=== PATIENT | male | born 2000 | race Caucasian/White ===

== ENCOUNTER 2021-07-06 05:25 | Emergency (ER) | payer BC ==
--- OUTSIDE RECORDS SUMMARY | 2021-07-06 05:29 | XMS REPORT | Continuity of Care Document ---
:2000 Author Organization [facility] t Address [address] [place] [place] [address] Care Team Providers Name Role Phone Unavailable Unavailable Unavailable Problems This patient has no known problems. Allergies, Adverse Reactions, Alerts This patient has no known allergies or adverse reactions. Medications This patient has no known medications. Immunizations Ordered Filled Immunization Date Status Comments [facility] e Immunization Name Name Gardasil, HPV Gardasil, HPV 2019-10-[address] [facility] - 9-valent, IM 9-valent, IM 00:00:00 [facility] Procedures This patient has no known procedures. Encounters Start End Encounter Admission Attending Care Care Encounter Source Date/Time Date/Time Type Type Clinicians Facility Department ID 2021-06-30 2021-06-[address] [facility] [id number] [facility] 2021-03-03 2021-03-[address] [facility] [id number] [facility] 2021-03-03 2021-03-[address] [facility] [id number] [facility] 2020-08-20 2020-08-[address] [facility] [id number] [facility] 2020-07-23 2020-07-23 [facility] [id number] [facility] 14[facility]30[facility]00 14:30[facility]00 [facility] 2019-10-24 2019-10-24 Outpatient Dim[facility]le[facility] [id number] [facility] 16:00:00 16:00:00 [facility] ent Clinics Results This patient has no known results.
[2021-07-06 06:19] LABS: Absolute Lymphocytes (CBC) 1.8 K/uL (0.7-4.9); Basophils % 0.4 % (0-1.3); Hematocrit 48.9 % (39.6-49.0); Lymphocytes % 17.3 % (15.3-44.8); MPV 9.6 fL (7.6-11.3); RBC Red Blood Cell Count 5.37 M/uL (4.33-5.43)
[2021-07-06 06:25] LABS: ALT/SGPT 24 U/L (12-78); AST/SGOT 16 U/L (15-37); Albumin 4.4 g/dL (3.4-5.0); Alkaline Phosphatase 57 U/L (45-117); BUN Blood Urea Nitrogen 21 mg/dL (7-18); Bicarbonate 28 mmol/L (21-32); Bilirubin Direct 0.2 mg/dL (0-0.2); Bilirubin Total 0.7 mg/dL (0.2-1.0); Glucose Level 97 mg/dL (74-106); Lipase 81 U/L (73-393); Protein, Total 7.8 g/dL (6.4-8.2); Sodium Level 142 mmol/L (136-145)
--- NOTE | 2021-07-06 07:45 | RAD REPORT ---
EXAM DESCRIPTION: CTAbdomen Pelvis W Contrast - 07/06/2021 7:37 am CLINICAL HISTORY: Abdominal pain. ABD PAIN COMPARISON: No comparisons TECHNIQUE: Biphasic CT imaging of the abdomen and pelvis was performed with 100 ml non-ionic IV cont rast. All CT scans are performed using dose optimization technique as appropriate and may include automated exposure control or mA/KV adjustment according to patient size. FINDINGS: The lung bases are clear. No focal liver lesions are seen. Simple appearing left upper pole renal cyst. Pancreas is unremarkabl e. The spleen is unremarkable. No adrenal masses. No hydronephrosis or stones. No bowel obstruction, free air, free fluid or abscess. The appendix is normal. No evidence of signi ficant lymphadenopathy. No suspicious bony findings. IMPRESSION: No acute intra-abdominal or pelvic finding. Normal appendix.
--- NOTE | 2021-07-06 07:57 | EDPHYS ---
Physician Documentation [facility] Name: Tavon Vicente Age: 21 yrs Sex: Male : 2000 Arrival Date: 07/06/2021 Time: 05:28 Bed 7 Private MD: ED Physician Miguelito Espinal HPI: 07/06 07:11 This 21 yrs old Male presents to ER via Ambulatory with complaints of rn Abdominal Pain. 07:11 The patient presents with abdominal pain in the epigastric area. Onset: The rn symptoms/episode began/occurred this morning. The symptoms do not radiate. Associated signs and symptoms: Pertinent negatives: blood in stools, chest pain, constipation, diarrhea, dysuria, fever, hematuria, nausea, testicular pain, vomiting, vomiting blood. The symptoms are described as intermittent, sharp. Modifying factors: The symptoms are alleviated by nothing, the symptoms are aggravated by touching the area. Severity of pain: At its worst the pain was moderate in the emergency department the pain has improved. The patient has not experienced similar symptoms in the past. The patient has not recently seen a physician. Patient reports upper abdominal pain that began this morning, sharp, was constant but now letting up. Pain now down to a 1 or 2 out of 10. No fever no vomiting no diarrhea. No recent illnesses. No sick contacts. Reports noticed pain last night after drinking soda.. Historical: - Allergies: 05:48 No Known Allergies; em - PMHx: 05:48 None; em - PSHx: 05:48 None; em - Immunization history:: Client reports having NOT received the Covid vaccine. - Social history:: Smoking status: Patient denies any tobacco usage or history of. - Family history:: not pertinent. - Hospitalizations: : No recent hospitalization is reported. ROS: 07:11 Constitutional: Negative for fever, chills, and weight loss, Eyes: Negative for injury, rn pain, redness, and discharge, Neck: Negative for injury, pain, and swelling, Cardiovascular: Negative for chest pain, palpitations, and edema, Respiratory: Negative for shortness of breath, cough, wheezing, and pleuritic chest pain, Abdomen/GI: Negative for nausea, vomiting, diarrhea, and constipation, Back: Negative for injury and pain, : Negative for injury, bleeding, discharge, and swelling, MS/Extremity: Negative for injury and deformity, Skin: Negative for injury, rash, and discoloration, Neuro: Negative for headache, weakness, numbness, tingling, and seizure. 07:11 All other systems are negative. Exam: 07:11 Constitutional: Thin male, ambulatory to room without assistance, no acute distress rn Head/Face: Normocephalic, atraumatic. Eyes: Periorbital areas with no swelling, redness, or edema. ENT: No stridor Cardiovascular: Regular rate and rhythm. No pulse deficits. Respiratory: No increased work of breathing, no retractions or nasal flaring. Abdomen/GI: Soft, mild epigastric tenderness, no rebound or guarding. Negative Bowman Skin: Warm, dry MS/ Extremity: Pulses equal, no cyanosis. Neuro: Awake and alert, GCS 15 Vital Signs: 05:47 BP 141 / 88; Pulse 59; Resp 20; Temp 97.8(O); Pulse Ox 95% on R/A; Weight 63.5 kg; em Height 6 ft. 1 in. (185.42 cm); 05:47 Body Mass Index 18.47 (63.50 kg, 185.42 cm) em MDM: 07:04 Patient medically screened. rn 07:55 Differential diagnosis: appendicitis, cholecystitis, Cholelithiasis, gastritis, rn gastroesophageal reflux disease, non-specific abd pain, pancreatitis, Peptic Ulcer Disease. Differential diagnosis: gastritis. Data reviewed: vital signs, nurses notes. Counseling: I had a detailed discussion with the patient and/or guardian regarding: the historical points, exam findings, and any diagnostic results supporting the discharge/admit diagnosis, lab results, radiology results, the need for outpatient follow up, to return to the emergency department if symptoms worsen or persist or if there are any questions or concerns that arise at home. Response to treatment: the patient's symptoms have mildly improved after treatment, and as a result, I will discharge patient. Special discussion: Based on the patient's Hx, exam, and Dx evaluation, there is no indication for emergent surgery or inpatient Tx. It is understood by the patient/guardian that if the Sx's persist or worsen they need to return immediately for re-evaluation. I discussed with the patient/guardian in detail that at this point there is no indication for admission to the hospital. It is understood, however, that if the symptoms persist or worsen the patient needs to return immediately for re-evaluation. 07/06 05:48 Order name: Basic Metabolic Panel em 07/06 05:48 Order name: CBC with Diff em 07/06 05:48 Order name: Hepatic Function em 07/06 05:48 Order name: Lipase em 07/06 06:22 Order name: CBC with Automated Diff; Complete Time: 07:11 EDMS 07/06 06:25 Order name: Basic Metabolic Panel; Complete Time: 07:11 EDMS 07/06 05:48 Order name: IV Saline Lock; Complete Time: 06:47 em 07/06 05:48 Order name: Labs collected and sent; Complete Time: 06:47 em 07/06 06:25 Order name: Liver (Hepatic) Function; Complete Time: 07:11 EDMS 07/06 06:25 Order name: Lipase; Complete Time: 07:11 EDMS 07/06 07:11 Order name: CT Abd/Pelvis - IV Contrast Only rn 07/06 07:45 Order name: CT; Complete Time: 07:55 EDMS Administered Medications: 07:56 Drug: GI Cocktail without - (Maalox Suspension 30 ml, Lidocaine Liquid 2 % 15 jl7 ml) Route: PO; 08:46 Follow up: Response: No adverse reaction; Pain is decreased jl7 Disposition Summary: 07/06/21 07:56 Discharge Ordered Location: Home rn Problem: new rn Symptoms: have improved rn Condition: Stable rn Diagnosis - Upper abdominal pain, unspecified rn - Gastritis, unspecified rn Followup: rn - With: Private Physician - When: As needed - Reason: Recheck today's complaints, Re-evaluation by your physician Discharge Instructions: - Discharge Summary Sheet rn - Abdominal Pain, Adult rn - Gastritis, Adult rn - Pain Without a Known Cause rn Forms: - Medication Reconciliation Form rn - Thank You Letter rn - Antibiotic rn social services - Prescription Opioid Use rn Signatures: Dispatcher [employer] Valente Haile, RN RN Miguelito Zhang MD MD rn Leal, Jahala, RN RN jl7
--- NOTE | 2021-07-06 07:57 | ER ---
Nurse's Notes [facility] Name: Tavon Vicente Age: 21 yrs Sex: Male : 2000 Arrival Date: 07/06/2021 Time: 05:28 Bed 7 Private MD: Diagnosis: Upper abdominal pain, unspecified;Gastritis, unspecified Presentation: 07/06 05:47 Chief complaint: Patient states: abdominal pain that started this morning at 0400, em denies N/V/D or fever. Coronavirus screen: Client denies travel out of the [place] in the last 14 days. Ebola Screen: Patient negative for fever greater than or equal to 101.5 degrees Fahrenheit, and additional compatible Ebola Virus Disease symptoms Patient denies exposure to infectious person. Patient denies travel to an Ebola-affected area in the 21 days before illness onset. No symptoms or risks identified at this time. Initial Sepsis Screen: Does the patient meet any 2 criteria? No. Patient's initial sepsis screen is negative. Does the patient have a suspected source of infection? No. Patient's initial sepsis screen is negative. Risk Assessment: Do you want to hurt yourself or someone else? Patient reports no desire to harm self or others. Onset of symptoms was July 06, 2021. 05:47 Method Of Arrival: Ambulatory em 05:47 Acuity: ANGELA 3 em Historical: - Allergies: 05:48 No Known Allergies; em - PMHx: 05:48 None; em - PSHx: 05:48 None; em - Immunization history:: Client reports having NOT received the Covid vaccine. - Social history:: Smoking status: Patient denies any tobacco usage or history of. - Family history:: not pertinent. - Hospitalizations: : No recent hospitalization is reported. Screenin:57 Abuse screen: Denies threats or abuse. Nutritional screening: No deficits noted. em Tuberculosis screening: No symptoms or risk factors identified. Fall Risk None identified. Assessment: 05:47 General: Appears in no apparent distress. uncomfortable, slender, well groomed, well em developed. Pain: Complains of pain in abdomen Pain currently is 1.5 out of 10 on a pain scale. Neuro: Level of Consciousness is awake, alert, obeys commands, Oriented to person, place, time, situation. Cardiovascular: Capillary refill < 3 seconds Patient's skin is warm and dry. Respiratory: Airway is patent Respiratory effort is even, unlabored, Respiratory pattern is regular, symmetrical. GI: Abdomen is flat, Abd is soft X 4 quads Abdomen is tender to palpation in left upper quadrant. : Denies burning with urination, discharge, urinary frequency. Derm: Skin is intact, is healthy with good turgor, Skin is pink, warm \T\ dry. Musculoskeletal: Capillary refill < 3 seconds, Range of motion: intact in all extremities. 07:00 Reassessment: Patient appears in no apparent distress at this time. Patient and/or jl7 family updated on plan of care and expected duration. Pain level reassessed. Patient is alert, oriented x 3, equal unlabored respirations, skin warm/dry/pink. Pain: Complains of pain in epigastric area Pain currently is 1 out of 10 on a pain scale. at worst was 7 out of 10 on a pain scale. Quality of pain is described as sharp, Pain began 0500 Is continuous. Vital Signs: 05:47 BP 141 / 88; Pulse 59; Resp 20; Temp 97.8(O); Pulse Ox 95% on R/A; Weight 63.5 kg; em Height 6 ft. 1 in. (185.42 cm); 05:47 Body Mass Index 18.47 (63.50 kg, 185.42 cm) em ED Course: 05:28 Patient arrived in ED. bp1 05:48 Triage completed. em 05:48 Arm band placed on. em 05:55 Initial lab(s) drawn, by md, sent to lab. Inserted saline lock: 20 gauge in right em antecubital area, using aseptic technique. Blood collected. 05:57 Patient has correct armband on for positive identification. em 07:00 No provider procedures requiring assistance completed. jl7 07:03 Miguelito Espinal MD is Attending Physician. rn 07:46 Dallin Horta RN is Primary Nurse. jl7 08:46 IV discontinued, intact, bleeding controlled, No redness/swelling at site. Pressure jl7 dressing applied. Administered Medications: 07:56 Drug: GI Cocktail without - (Maalox Suspension 30 ml, Lidocaine Liquid 2 % 15 jl7 ml) Route: PO; 08:46 Follow up: Response: No adverse reaction; Pain is decreased jl7 Outcome: 07:56 Discharge ordered by . rn 08:46 Discharged to home ambulatory. jl7 08:46 Condition: stable 08:46 Discharge instructions given to patient, Instructed on discharge instructions, follow up and referral plans. Demonstrated understanding of instructions, follow-up care. 08:46 Patient left the ED. jl7 Signatures: Valente Jones, RN Miguelito Robertson MD MD rn Leal, Jahala, RN RN jl7 [place], [facility]
[2021-07-06] MEDS ORDERED: MAGNES/ALUMIN/SIMET 30ML UCUP ONE (08:16)
[2021-07-06] MEDS ORDERED: LIDOCAINE VISCOUS 2% SOLN 15 ML UDC ONE (08:17)
[2021-07-06 08:53] VITALS: BP 141/88; TEMP 97.8; O2SAT 95
== END 2021-07-06 08:46 | disposition home or self-care (01) ==
LOC: ER 05:25
DX: K29.70 Gastritis, unspecified, without bleeding (principal)
CPT/HCPCS: 85025; 80048; 36415; 80076; 83690; 74177; 99283; Q9967